=== PATIENT | male | born 1990 | race Caucasian/White ===

== ENCOUNTER 2022-11-08 17:58 | Emergency (ER) | payer OTHER ==
[~2022-11-08] VITALS: Ht 177.8 cm; Wt 77.1 kg
[2022-11-08 20:22] VITALS: BP 121/69
== END 2022-11-08 20:22 | disposition home or self-care (01) ==
LOC: ER 17:58
DX: H10.13 Acute atopic conjunctivitis, bilateral (principal)
CPT/HCPCS: 99282